=== PATIENT | male | born 1975 ===

== ENCOUNTER 2017-04-11 12:30 | Emergency (ER) | payer BC ==
[2017-04-11 12:37] VITALS: BP 133/93; PULSE 78; RESP 18; TEMP 98.5; O2SAT 97
--- NOTE | 2017-04-11 12:45 | C.PDOC ---
History Of Present Illness 42 y/o M p/w cough productive of green sputum, chills x 2 days. Denies dyspnea, vomiting abdominal pain. Time Seen by Provider: 04/11/17 12:39 Chief Complaint (Nursing): Cough, Cold, Congestion Past Medical History Vital Signs: Last Vital Signs Temp 98.5 F 04/11/17 12:34 Pulse 78 04/11/17 12:34 Resp 18 04/11/17 12:34 BP 133/93 H 04/11/17 12:34 Pulse Ox 97 04/11/17 12:34 Family History: States: Unknown Family Hx - Social History Hx Tobacco Use: Yes (5 CIG/DAY) Hx Alcohol Use: Yes (OCC) Hx Substance Use: No - Immunization History Hx Tetanus Toxoid Vaccination: No Hx Influenza Vaccination: Yes Hx Pneumococcal Vaccination: No Review Of Systems Except As Marked, All Systems Reviewed And Found Negative. Constitutional: Negative for: Fever Cardiovascular: Negative for: Chest Pain Physical Exam - Physical Exam Appears: Non-toxic, No Acute Distress Skin: Normal Color Head: Normacephalic Throat: No Erythema, No Exudate Neck: Supple Cardiovascular: Rhythm Regular Respiratory: Normal Breath Sounds, No Rales, No Rhonchi, No Stridor, No Wheezing Gastrointestinal/Abdominal: Soft, No Tenderness Extremity: No Swelling Neurological/Psych: Normal Speech, Normal Cognition Gait: Steady ED Course And Treatment O2 Sat by Pulse Oximetry: 97 Medical Decision Making Medical Decision Making: Return to ER for worsening pain, fever, dyspnea, or any other problem. Disposition - Disposition Disposition: HOME/ ROUTINE Disposition Time: 12:44 Condition: STABLE Prescriptions: Azithromycin [Zithromax] 2 tab PO DAILY #6 tab Instructions: Upper Respiratory Infection (ED) Forms: [facility] ([place]) - Clinical Impression Clinical Impression: Cough
== END 2017-04-11 13:04 | disposition home or self-care (01) ==
LOC: C.ER 12:30
DX: R05 Cough (principal); Z72.0 Tobacco use